=== PATIENT | male | born 1975 | race Caucasian/White ===

== ENCOUNTER 2021-08-21 06:15 | Inpatient (IN) ==
[2021-08-21] MEDS ORDERED: *HR* FentaNYL (PF) 1,000 MCG/20 ML VIAL ONE (06:25)
[2021-08-21] MEDS ORDERED: *HR* Phenylephrine 10 MG/ML VIAL ONE (06:25)
[2021-08-21] MEDS ORDERED: *HR* Rocuronium Bromide 50 MG/5 ML VIAL ONE ×2 (06:25→10:59)
[2021-08-21] MEDS ORDERED: *HR* Midazolam HCl 5 MG/5 ML VIAL IVP ONE (06:25)
[2021-08-21] MEDS ORDERED: *HR* Etomidate 20 MG/10 ML AMPUL IVP ONE (06:26)
[2021-08-21] MEDS ORDERED: Tranexamic Acid 1,000 MG/10 ML VIAL ONE (06:26)
[2021-08-21] MEDS ORDERED: Protamine Sulfate 250 MG/25 ML VIAL IVP ONE (06:26)
[2021-08-21] MEDS ORDERED: Calcium Gluconate 1,000 MG/10 ML VIAL ONE (06:26)
[2021-08-21] MEDS ORDERED: niCARdipine 40 MG/200 ML MLS IVC ONE (06:27)
[2021-08-21] MEDS ORDERED: *HR* DOBUTamine HCl 250 MG/20 ML VIAL ONE (06:28)
[2021-08-21] MEDS ORDERED: D5% in Water 250 ML ONE ×2 (06:28→11:15)
[2021-08-21] MEDS ORDERED: EPHEDrine 50 MG/ML VIAL ONE (06:45)
[2021-08-21] MEDS ORDERED: Chlorhexidine Rinse 15 ML MOUTHWASH MM ONE (06:53)
[2021-08-21] MEDS ORDERED: Aspirin 325 MG TABLET PO ONE (06:55)
[2021-08-21] MEDS ORDERED: Papaverine 60 MG/2 ML VIAL IVP ONE (07:02)
[2021-08-21] MEDS ORDERED: Vancomycin 1,000 MG VIAL ONE (07:02)
[2021-08-21] MEDS ORDERED: VANCOMYCIN IVPB ONE (07:17)
[2021-08-21] MEDS ORDERED: SODIUM CHLORIDE 0.9% IVPB ONE (07:17)
[2021-08-21] MEDS ORDERED: ceFAZolin 3,000 MG in 0.9 % Sodium Chloride 100 ML IVPB ONE (07:32)
[2021-08-21] MEDS ORDERED: Vancomycin 2,000 MG/520 ML IV.SOLN IVPB ONE (07:37)
[2021-08-21] MEDS ORDERED: Heparin 15,000 UNIT in 0.9 % Sodium Chloride 500 ML IV ONE (07:45)
[2021-08-21] MEDS ORDERED: Norepinephrine 4 MG in 0.9 % Sodium Chloride 250 ML IVC PRN ×2 (07:45→13:37)
[2021-08-21] MEDS ORDERED: CeFAZolin Syr 3,000MG/30 ML 3,000 MG/30 ML SYRINGE IVPB ONE (08:00)
[2021-08-21] MEDS ORDERED: del Nido Cardioplegia Solution PF ONE (08:00)
[2021-08-21] MEDS ORDERED: Buckersberg's Blood Cardioplegia PF SCH ×2 (08:00)
[2021-08-21] MEDS ORDERED: del Nido Cardioplegia Solution PF SCH (08:00)
[2021-08-21 09:27] LABS: ABG Base Excess -2 mEq/L (-2 to 3); ABG Chloride 107 mEq/L (98-107); ABG Glucose 203 mg/dL (60-95); ABG HCO3 24 mEq/L (21-27); ABG Ionized Calcium 1.16 mmol/L (1.15-1.35); ABG Oxygen Saturation 100 % (95-98); ABG PCO2 46 mmHg (35-45); ABG PH 7.32 pH Units (7.32-7.45); ABG PO2 215 mmHg (85-104); ABG TCO2 25 mEq/L (20-26)
[2021-08-21 09:48] LABS: ABG Base Excess -4 mEq/L (-2 to 3); ABG Chloride 106 mEq/L (98-107); ABG Glucose 239 mg/dL (60-95); ABG HCO3 24 mEq/L (21-27); ABG Ionized Calcium 1.17 mmol/L (1.15-1.35); ABG Oxygen Saturation 96 % (95-98); ABG PCO2 54 mmHg (35-45); ABG PH 7.25 pH Units (7.32-7.45); ABG PO2 100 mmHg (85-104); ABG TCO2 25 mEq/L (20-26)
[2021-08-21] MEDS ORDERED: NiCARdipine 2.5 MG/10 ML Syringe IVPB ONE (09:56)
[2021-08-21 10:20] LABS: ABG Base Excess -3 mEq/L (-2 to 3); ABG Chloride 103 mEq/L (98-107); ABG Glucose 213 mg/dL (60-95); ABG HCO3 23 mEq/L (21-27); ABG Ionized Calcium 1.01 mmol/L (1.15-1.35); ABG Oxygen Saturation 100 % (95-98); ABG PCO2 47 mmHg (35-45); ABG PH 7.31 pH Units (7.32-7.45); ABG PO2 488 mmHg (85-104); ABG TCO2 25 mEq/L (20-26)
[2021-08-21 10:49] LABS: ABG Base Excess -1 mEq/L (-2 to 3); ABG Chloride 103 mEq/L (98-107); ABG Glucose 244 mg/dL (60-95); ABG HCO3 24 mEq/L (21-27); ABG Ionized Calcium 1.05 mmol/L (1.15-1.35); ABG Oxygen Saturation 100 % (95-98); ABG PCO2 41 mmHg (35-45); ABG PH 7.38 pH Units (7.32-7.45); ABG PO2 447 mmHg (85-104); ABG TCO2 25 mEq/L (20-26)
[2021-08-21] MEDS ORDERED: EPINEPHrine 1 MG/ML VIAL ONE ×2 (11:12→11:28)
[2021-08-21] MEDS ORDERED: *HR* Vasopressin 20 UNIT/ML VIAL ONE ×2 (11:12→11:23)
[2021-08-21] MEDS ORDERED: methylPREDNISolone 125 MG/2 ML VIAL ONE (11:21)
[2021-08-21 11:26] LABS: ABG Base Excess -1 mEq/L (-2 to 3); ABG Chloride 103 mEq/L (98-107); ABG Glucose 230 mg/dL (60-95); ABG HCO3 24 mEq/L (21-27); ABG Ionized Calcium 0.98 mmol/L (1.15-1.35); ABG Oxygen Saturation 100 % (95-98); ABG PCO2 41 mmHg (35-45); ABG PH 7.37 pH Units (7.32-7.45); ABG PO2 467 mmHg (85-104); ABG TCO2 25 mEq/L (20-26)
[2021-08-21] MEDS ORDERED: Sodium Bicarbonate 50 MEQ/50 ML VIAL ONE ×2 (11:29→12:15)
[2021-08-21] MEDS ORDERED: Tranexamic Acid 1,000 MG/10 ML VIAL IR ONE (11:37)
[2021-08-21] MEDS ORDERED: Lidocaine 2% Syringe 100 MG/5 ML IVP ONE (11:37)
[2021-08-21] MEDS ORDERED: Mannitol 25% vial 12.5 GM/50 ML VIAL IVPB ONE (11:37)
[2021-08-21] MEDS ORDERED: Albumin Human 25% 25 GM/100 ML IV.SOLN IVPB ONE (11:37)
[2021-08-21] MEDS ORDERED: *HR* Phenylephrine 10 MG/ML VIAL IVC ONE (11:37)
[2021-08-21] MEDS ORDERED: *HR* Heparin 10,000 UNIT/10 ML VIAL IR ONE (11:37)
[2021-08-21] MEDS ORDERED: *HR* Magnesium Sulfate 2 GM/50 ML PIGGYBACK IVPB ONE (11:37)
[2021-08-21 11:39] LABS: ABG Base Excess -9 mEq/L (-2 to 3); ABG Chloride 106 mEq/L (98-107); ABG Glucose 335 mg/dL (60-95); ABG HCO3 19 mEq/L (21-27); ABG Oxygen Saturation 94 % (95-98); ABG PCO2 50 mmHg (35-45); ABG PO2 89 mmHg (85-104); ABG TCO2 21 mEq/L (20-26)
[2021-08-21 12:12] LABS: ABG Base Excess 1 mEq/L (-2 to 3); ABG Chloride 102 mEq/L (98-107); ABG Glucose 336 mg/dL (60-95); ABG HCO3 28 mEq/L (21-27); ABG Ionized Calcium 1.34 mmol/L (1.15-1.35); ABG Oxygen Saturation 98 % (95-98); ABG PCO2 51 mmHg (35-45); ABG PH 7.34 pH Units (7.32-7.45); ABG PO2 113 mmHg (85-104); ABG TCO2 29 mEq/L (20-26)
[2021-08-21] MEDS ORDERED: Albumin Human 5% 12.5 GM/250 ML IV.SOLN ONE ×4 (12:15→14:09)
[2021-08-21] MEDS ORDERED: Famotidine 20 MG/2 ML VIAL ONE (12:24)
[2021-08-21 13:18] LABS: ABG Base Excess -3 mEq/L (-2 to 3); ABG HCO3 24 mEq/L (21-27); ABG Oxygen Saturation 95 % (95-98); ABG PCO2 50 mmHg (35-45); ABG PH 7.29 pH Units (7.32-7.45); ABG PO2 87 mmHg (85-104); ABG TCO2 25 mEq/L (20-26); Blood Gas Modality AF; Blood Gas VT 750 cc
[2021-08-21] MEDS ORDERED: Albumin 25% 25gram/100mL 25 GM/100 ML IV.SOLN ONE (13:35)
[2021-08-21] MEDS ORDERED: Acetaminophen 325 MG TABLET PO PRN (13:37)
[2021-08-21] MEDS ORDERED: *HR* Promethazine 25 MG/ML VIAL IM PRN (13:37)
[2021-08-21] MEDS ORDERED: *HR* Dextrose 50 % in Water (Syg) 50 ML SYRINGE IVP PRN (13:37)
[2021-08-21] MEDS ORDERED: Insulin Regular, Human 100 UNIT/ML IV PRN (13:37)
[2021-08-21] MEDS ORDERED: Ondansetron 4 MG/2 ML VIAL IVP PRN (13:37)
[2021-08-21] MEDS ORDERED: Potassium Chloride 40 MEQ/200 ML BAG IVPB PRN (13:37)
[2021-08-21 13:50] LABS: Basophils # 0.1 K/mcL (0.0-0.2); Basophils % 0.3 %; Eosinophils # 0.1 K/mcL (0.0-0.6); Eosinophils % 0.3 %; Hematocrit 32.5 % (37.5-50.1); Hemoglobin 10.5 g/dL (12.9-16.9); Immature Granulocytes % 1.8 % (0-4); Lymphocytes # 1.6 K/mcL (0.6-4.6); Lymphocytes % 7.7 %; Mean Corpuscular HGB Conc 32.3 g/dL (31.6-35.5); Mean Corpuscular Hemoglobin 26.6 pg (28.0-33.3); Mean Corpuscular Volume 82.3 fL (83.0-100.0); Mean Platelet Volume 11.3 fL (9.4-12.4); Monocytes # 1.1 K/mcL (0.0-1.3); Monocytes % 5.2 %; Neutrophils # 17.8 K/mcL (1.6-8.9); Platelet Count 209 K/mcL (140-400); Red Blood Count 3.95 M/mcL (4.19-5.50); Red Cell Distribution Width 14.2 % (11.5-14.5); Segmented Neutrophils % 84.7 %
[2021-08-21 13:57] LABS: INR 1.4
[2021-08-21 14:07] LABS: BUN/Creatinine Ratio 16 (6-26); Blood Urea Nitrogen 14 mg/dL (6-20); Calcium 5.8 mg/dL (8.6-10.3); Carbon Dioxide 17 mEq/L (23-29); Chloride 118 mEq/L (98-107); Glucose 240 mg/dL (70-105); Magnesium 1.7 mg/dL (1.6-2.6); Osmolality,Calculated 324 (280-300); Potassium 3.3 mEq/L (3.5-5.1); Sodium 153 mEq/L (136-145); eGFR For African Americans > 60 (> 60); eGFR For Non-African Americans > 60 (> 60)
[2021-08-21 14:13] LABS: Activated Partial Thrombo Time > 360.0 Seconds (26.0-36.0)
[2021-08-21] MEDS: *HR* OxyCODONE/APAP 5/325 TABLET PO PRN ×3 (14:21→23:05)
[2021-08-21 15:38] LABS: ABG Base Excess -2 mEq/L (-2 to 3); ABG HCO3 24 mEq/L (21-27); ABG Oxygen Saturation 96 % (95-98); ABG PCO2 45 mmHg (35-45); ABG PH 7.33 pH Units (7.32-7.45); ABG PO2 89 mmHg (85-104); ABG TCO2 25 mEq/L (20-26); Blood Gas Modality CPAP/PS; Blood Gas Pressure Support 8 cm H2O
[2021-08-21] MEDS: *HR* FentaNYL (PF) 100 MCG/2 ML VIAL IVP PRN ×2 (16:50→19:27)
[2021-08-21] MEDS: CeFAZolin 2 GM/120 ML BAG IVPB SCH (16:51)
[2021-08-21 16:57] LABS: ABG Base Excess -3 mEq/L (-2 to 3); ABG HCO3 23 mEq/L (21-27); ABG Oxygen Saturation 94 % (95-98); ABG PCO2 41 mmHg (35-45); ABG PH 7.35 pH Units (7.32-7.45); ABG PO2 77 mmHg (85-104); ABG TCO2 24 mEq/L (20-26); Blood Gas FiO2 4.5 (1-15=lpm or21-100=%)
[2021-08-21] MEDS: Norepinephrine 4 MG/254 ML IV.SOLN IVC SCH ×2 (19:13→21:09)
[2021-08-21] MEDS: niCARdipine 20 MG/200 ML MLS IVC SCH ×2 (19:13→21:08)
[2021-08-21] MEDS: Calcium Gluconate 1gm/50mL 1 GM/50 ML BAG IVPB PRN ×2 (19:29→20:52)
[2021-08-21] MEDS: Chlorhexidine Rinse 15 ML MOUTHWASH MM SCH (20:37)
[2021-08-21] MEDS: Ketorolac 30 MG/ML VIAL IVP PRN (20:51)
[2021-08-22] MEDS: *HR* FentaNYL (PF) 100 MCG/2 ML VIAL IVP PRN ×3 (00:07→09:56)
[2021-08-22] MEDS: CeFAZolin 2 GM/120 ML BAG IVPB SCH (00:07)
[2021-08-22] MEDS: niCARdipine 20 MG/200 ML MLS IVC SCH ×4 (00:22→19:54)
[2021-08-22] MEDS: Ketorolac 30 MG/ML VIAL IVP PRN (03:06)
[2021-08-22] MEDS: *HR* OxyCODONE/APAP 5/325 TABLET PO PRN ×5 (04:02→19:45)
[2021-08-22 04:44] LABS: Basophils % 0.1 %; Hematocrit 34.7 % (37.5-50.1); Hemoglobin 11.3 g/dL (12.9-16.9); Immature Granulocytes % 0.8 % (0-4); Lymphocytes # 1.2 K/mcL (0.6-4.6); Lymphocytes % 8.7 %; Mean Corpuscular HGB Conc 32.6 g/dL (31.6-35.5); Mean Corpuscular Hemoglobin 26.4 pg (28.0-33.3); Mean Corpuscular Volume 81.1 fL (83.0-100.0); Mean Platelet Volume 11.2 fL (9.4-12.4); Monocytes # 0.9 K/mcL (0.0-1.3); Monocytes % 6.7 %; Neutrophils # 11.3 K/mcL (1.6-8.9); Platelet Count 165 K/mcL (140-400); Red Blood Count 4.28 M/mcL (4.19-5.50); Red Cell Distribution Width 14.6 % (11.5-14.5); Segmented Neutrophils % 83.7 %; White Blood Count 13.5 K/mcL (4.3-11.1)
[2021-08-22 04:54] LABS: INR 1.2; Prothrombin Time 12.9 Seconds (9.4-12.1)
[2021-08-22 04:57] LABS: Activated Partial Thrombo Time 29.3 Seconds (26.0-36.0)
[2021-08-22 05:10] LABS: BUN/Creatinine Ratio 16 (6-26); Blood Urea Nitrogen 22 mg/dL (6-20); Carbon Dioxide 23 mEq/L (23-29); Chloride 105 mEq/L (98-107); Glucose 161 mg/dL (70-105); Magnesium 2.3 mg/dL (1.6-2.6); Osmolality,Calculated 289 (280-300); Potassium 4.8 mEq/L (3.5-5.1); Sodium 136 mEq/L (136-145); eGFR For African Americans > 60 (> 60); eGFR For Non-African Americans 56 (> 60)
[2021-08-22] MEDS: Norepinephrine 4 MG/254 ML IV.SOLN IVC SCH (06:59)
[2021-08-22 07:50] LABS: ABG Base Excess -3 mEq/L (-2 to 3); ABG Chloride 104 mEq/L (98-107); ABG Glucose 353 mg/dL (60-95); ABG HCO3 23 mEq/L (21-27); ABG Oxygen Saturation 98 % (95-98); ABG PCO2 46 mmHg (35-45); ABG PH 7.31 pH Units (7.32-7.45); ABG PO2 119 mmHg (85-104); ABG TCO2 24 mEq/L (20-26)
[2021-08-22] MEDS ORDERED: Furosemide 40 MG/4 ML VIAL IVP ONE (08:43)
[2021-08-22] MEDS: Chlorhexidine Rinse 15 ML MOUTHWASH MM SCH (08:52)
[2021-08-22] MEDS ORDERED: Aspirin Enteric Coated 81 MG Tablet PO SCH (09:00)
[2021-08-22] MEDS ORDERED: Pantoprazole 40 MG VIAL IVP SCH (09:00)
[2021-08-22] MEDS ORDERED: Insulin Regular, Human 100 UNIT/ML IV PRN (17:08)
[2021-08-22] MEDS ORDERED: Calcium Gluconate 1gm/50mL 1 GM/50 ML BAG IVPB PRN (17:08)
[2021-08-22] MEDS ORDERED: Acetaminophen 325 MG TABLET PO PRN (17:08)
[2021-08-22] MEDS: Ondansetron 4 MG/2 ML VIAL IVP PRN (19:00)
[2021-08-22] MEDS: hydrOXYzine pamoate 25 MG CAPSULE PO SCH (19:45)
[2021-08-22] MEDS: levETIRAcetam 250 MG TABLET PO SCH (19:45)
[2021-08-23] MEDS: *HR* OxyCODONE/APAP 5/325 TABLET PO PRN ×5 (00:06→20:38)
[2021-08-23] MEDS: Ondansetron 4 MG/2 ML VIAL IVP PRN ×3 (01:18→12:41)
[2021-08-23 05:45] LABS: Basophils % 0.1 %; Hematocrit 34.2 % (37.5-50.1); Hemoglobin 11.2 g/dL (12.9-16.9); Immature Granulocytes % 1.1 % (0-4); Lymphocytes # 1.7 K/mcL (0.6-4.6); Lymphocytes % 8.1 %; Mean Corpuscular HGB Conc 32.7 g/dL (31.6-35.5); Mean Corpuscular Hemoglobin 26.8 pg (28.0-33.3); Mean Corpuscular Volume 81.8 fL (83.0-100.0); Monocytes # 1.2 K/mcL (0.0-1.3); Monocytes % 5.8 %; Neutrophils # 17.7 K/mcL (1.6-8.9); Nucleated Red Blood Cells 0.1 /100 WBC (0); Platelet Count 203 K/mcL (140-400); Red Blood Count 4.18 M/mcL (4.19-5.50); Red Cell Distribution Width 14.4 % (11.5-14.5); Segmented Neutrophils % 84.9 %
[2021-08-23 05:46] LABS: White Blood Count 20.9 K/mcL (4.3-11.1)
[2021-08-23] MEDS: niCARdipine 20 MG/200 ML MLS IVC SCH ×6 (07:50→20:38)
[2021-08-23] MEDS: levETIRAcetam 250 MG TABLET PO SCH ×2 (08:07→20:38)
[2021-08-23] MEDS: hydrOXYzine pamoate 25 MG CAPSULE PO SCH ×3 (08:07→20:38)
[2021-08-23] MEDS: Aspirin Enteric Coated 81 MG Tablet PO SCH (08:07)
[2021-08-23] MEDS: EPA PO SCH (08:08)
[2021-08-23] MEDS: OMEGA PO SCH (08:08)
[2021-08-23] MEDS: DHA PO SCH (08:08)
[2021-08-23] MEDS: FISH OIL PO SCH (08:08)
[2021-08-23 11:56] LABS: BUN/Creatinine Ratio 22 (6-26); Blood Urea Nitrogen 30 mg/dL (6-20); Carbon Dioxide 23 mEq/L (23-29); Chloride 93 mEq/L (98-107); Glucose 382 mg/dL (70-105); Osmolality,Calculated 286 (280-300); Potassium 4.7 mEq/L (3.5-5.1); Sodium 127 mEq/L (136-145); eGFR For African Americans > 60 (> 60); eGFR For Non-African Americans 57 (> 60)
[2021-08-23] MEDS ORDERED: Prochlorperazine 10 MG/2 ML VIAL IVP PRN (14:18)
[2021-08-23] MEDS ORDERED: Dextrose Gel 15 GM/37.5 ML TUBE PO PRN ×2 (15:41)
[2021-08-23] MEDS ORDERED: *HR* Dextrose 50 % in Water (Syg) 50 ML SYRINGE IVP PRN (15:41)
[2021-08-23] MEDS ORDERED: D5% in Water 1,000 ML IVC PRN (15:41)
[2021-08-23] MEDS: Insulin LISPRO 300 UNITS/3 ML VIAL SUBQ SCH (17:48)
[2021-08-23] MEDS: Cefuroxime PO 500 MG TABLET PO SCH (18:22)
[2021-08-23] MEDS ORDERED: Insulin DETEMIR 100 UNIT/ML X5UNITS SUBQ SCH (21:00)
[2021-08-23] MEDS ORDERED: Insulin LISPRO 300 UNITS/3 ML VIAL SUBQ SCH (21:00)
[2021-08-24] MEDS: niCARdipine 20 MG/200 ML MLS IVC SCH ×6 (03:25→20:54)
[2021-08-24 04:22] LABS: Basophils # 0.1 K/mcL (0.0-0.2); Basophils % 0.3 %; Eosinophils % 0.1 %; Hematocrit 32.5 % (37.5-50.1); Hemoglobin 10.8 g/dL (12.9-16.9); Immature Granulocytes % 1.4 % (0-4); Lymphocytes # 1.4 K/mcL (0.6-4.6); Mean Corpuscular HGB Conc 33.2 g/dL (31.6-35.5); Mean Corpuscular Hemoglobin 27.1 pg (28.0-33.3); Mean Corpuscular Volume 81.5 fL (83.0-100.0); Mean Platelet Volume 11.2 fL (9.4-12.4); Monocytes % 5.8 %; Neutrophils # 14.9 K/mcL (1.6-8.9); Nucleated Red Blood Cells 0.2 /100 WBC (0); Platelet Count 232 K/mcL (140-400); Red Blood Count 3.99 M/mcL (4.19-5.50); Red Cell Distribution Width 14.3 % (11.5-14.5); Segmented Neutrophils % 84.4 %; White Blood Count 17.6 K/mcL (4.3-11.1)
[2021-08-24 04:30] LABS: BUN/Creatinine Ratio 25 (6-26); Blood Urea Nitrogen 29 mg/dL (6-20); Calcium 9.3 mg/dL (8.6-10.3); Carbon Dioxide 26 mEq/L (23-29); Chloride 93 mEq/L (98-107); Glucose 320 mg/dL (70-105); Magnesium 2.4 mg/dL (1.6-2.6); Osmolality,Calculated 286 (280-300); Phosphorous 2.5 mg/dL (2.7-4.5); Potassium 4.5 mEq/L (3.5-5.1); Sodium 129 mEq/L (136-145); eGFR For African Americans > 60 (> 60); eGFR For Non-African Americans > 60 (> 60)
[2021-08-24] MEDS: Cefuroxime PO 500 MG TABLET PO SCH ×2 (05:14→17:17)
[2021-08-24] MEDS: *HR* OxyCODONE/APAP 5/325 TABLET PO PRN ×4 (05:14→21:11)
[2021-08-24] MEDS: levETIRAcetam 250 MG TABLET PO SCH ×2 (08:57→21:10)
[2021-08-24] MEDS: Aspirin Enteric Coated 81 MG Tablet PO SCH (08:57)
[2021-08-24] MEDS: hydrOXYzine pamoate 25 MG CAPSULE PO SCH ×3 (08:57→21:11)
[2021-08-24] MEDS: EPA PO SCH (08:59)
[2021-08-24] MEDS: DHA PO SCH (08:59)
[2021-08-24] MEDS: OMEGA PO SCH (08:59)
[2021-08-24] MEDS: Insulin LISPRO 300 UNITS/3 ML VIAL SUBQ SCH ×3 (08:59→17:20)
[2021-08-24] MEDS: FISH OIL PO SCH (08:59)
[2021-08-24] MEDS: Ondansetron 4 MG/2 ML VIAL IVP PRN (11:21)
[2021-08-24] MEDS: Sennosides 8.6 MG TABLET PO SCH (14:08)
[2021-08-24] MEDS: *HR* Heparin 5,000 UNIT/ML VIAL SQ SCH ×2 (14:08→21:10)
[2021-08-24] MEDS ORDERED: Insulin DETEMIR 100 UNIT/ML X5UNITS SUBQ SCH (21:00)
[2021-08-25] MEDS: niCARdipine 20 MG/200 ML MLS IVC SCH ×7 (00:46→21:14)
[2021-08-25] MEDS: Norepinephrine 4 MG/254 ML IV.SOLN IVC SCH (00:47)
[2021-08-25 02:52] LABS: Hematocrit 34.2 % (37.5-50.1); Hemoglobin 11.1 g/dL (12.9-16.9); Mean Corpuscular HGB Conc 32.5 g/dL (31.6-35.5); Mean Corpuscular Hemoglobin 26.3 pg (28.0-33.3); Mean Platelet Volume 10.9 fL (9.4-12.4); Platelet Count 288 K/mcL (140-400); Red Blood Count 4.22 M/mcL (4.19-5.50); Red Cell Distribution Width 14.4 % (11.5-14.5); White Blood Count 13.8 K/mcL (4.3-11.1)
[2021-08-25] MEDS: *HR* Heparin 5,000 UNIT/ML VIAL SQ SCH ×3 (05:50→20:24)
[2021-08-25] MEDS: Cefuroxime PO 500 MG TABLET PO SCH ×2 (05:50→17:13)
[2021-08-25] MEDS: *HR* OxyCODONE/APAP 5/325 TABLET PO PRN ×4 (05:50→20:25)
[2021-08-25] MEDS: Sennosides 8.6 MG TABLET PO SCH (07:25)
[2021-08-25] MEDS: DHA PO SCH (07:25)
[2021-08-25] MEDS: FISH OIL PO SCH (07:25)
[2021-08-25] MEDS: hydrOXYzine pamoate 25 MG CAPSULE PO SCH ×3 (07:25→20:25)
[2021-08-25] MEDS: OMEGA PO SCH (07:25)
[2021-08-25] MEDS: levETIRAcetam 250 MG TABLET PO SCH ×2 (07:25→20:25)
[2021-08-25] MEDS: EPA PO SCH (07:25)
[2021-08-25] MEDS: Aspirin Enteric Coated 81 MG Tablet PO SCH (07:25)
[2021-08-25] MEDS: Insulin LISPRO 300 UNITS/3 ML VIAL SUBQ SCH ×4 (08:01→21:13)
[2021-08-25] MEDS: Metoprolol XL (24 HR) Succ 25 MG TAB.ER.24H PO SCH (10:23)
[2021-08-25] MEDS: Sennosides/Docusate Sodium TABLET PO SCH ×2 (10:23→20:26)
[2021-08-25] MEDS ORDERED: Insulin DETEMIR 100 UNIT/ML X5UNITS SUBQ SCH (21:00)
[2021-08-26 04:11] LABS: Hematocrit 35.3 % (37.5-50.1); Hemoglobin 11.4 g/dL (12.9-16.9); Mean Corpuscular HGB Conc 32.3 g/dL (31.6-35.5); Mean Corpuscular Hemoglobin 26.1 pg (28.0-33.3); Mean Corpuscular Volume 80.8 fL (83.0-100.0); Mean Platelet Volume 10.4 fL (9.4-12.4); Platelet Count 315 K/mcL (140-400); Red Blood Count 4.37 M/mcL (4.19-5.50); Red Cell Distribution Width 14.3 % (11.5-14.5); White Blood Count 11.9 K/mcL (4.3-11.1)
[2021-08-26] MEDS: *HR* OxyCODONE/APAP 5/325 TABLET PO PRN ×4 (04:23→23:28)
[2021-08-26] MEDS: niCARdipine 20 MG/200 ML MLS IVC SCH ×4 (04:24→15:12)
[2021-08-26 04:29] LABS: BUN/Creatinine Ratio 32 (6-26); Blood Urea Nitrogen 29 mg/dL (6-20); Calcium 9.6 mg/dL (8.6-10.3); Carbon Dioxide 29 mEq/L (23-29); Chloride 91 mEq/L (98-107); Glucose 291 mg/dL (70-105); Magnesium 1.9 mg/dL (1.6-2.6); Osmolality,Calculated 287 (280-300); Potassium 3.8 mEq/L (3.5-5.1); Sodium 130 mEq/L (136-145); eGFR For African Americans > 60 (> 60); eGFR For Non-African Americans > 60 (> 60)
[2021-08-26] MEDS: *HR* Heparin 5,000 UNIT/ML VIAL SQ SCH ×3 (05:55→21:15)
[2021-08-26] MEDS: Cefuroxime PO 500 MG TABLET PO SCH ×2 (05:55→17:43)
[2021-08-26] MEDS: Insulin LISPRO 300 UNITS/3 ML VIAL SUBQ SCH ×4 (09:26→21:14)
[2021-08-26] MEDS: Aspirin Enteric Coated 81 MG Tablet PO SCH (09:27)
[2021-08-26] MEDS: Sennosides/Docusate Sodium TABLET PO SCH ×2 (09:27→21:10)
[2021-08-26] MEDS: levETIRAcetam 250 MG TABLET PO SCH ×2 (09:27→21:10)
[2021-08-26] MEDS: Metoprolol XL (24 HR) Succ 25 MG TAB.ER.24H PO SCH (09:27)
[2021-08-26] MEDS: hydrOXYzine pamoate 25 MG CAPSULE PO SCH ×3 (09:27→21:10)
[2021-08-26] MEDS: DHA PO SCH (09:28)
[2021-08-26] MEDS: FISH OIL PO SCH (09:28)
[2021-08-26] MEDS: EPA PO SCH (09:28)
[2021-08-26] MEDS: OMEGA PO SCH (09:28)
[2021-08-26] MEDS: Ondansetron 4 MG/2 ML VIAL IVP PRN (17:46)
[2021-08-26] MEDS: Metoprolol XL (24 HR) Succ 50 MG TAB.ER.24H PO SCH (21:10)
[2021-08-26] MEDS: Insulin DETEMIR 100 UNIT/ML X5UNITS SUBQ SCH (21:16)
[2021-08-27 02:10] LABS: Basophils # 0.1 K/mcL (0.0-0.2); Basophils % 0.9 %; Eosinophils # 0.2 K/mcL (0.0-0.6); Eosinophils % 1.9 %; Hematocrit 35.6 % (37.5-50.1); Hemoglobin 12.1 g/dL (12.9-16.9); Immature Granulocytes % 4.1 % (0-4); Lymphocytes # 2.1 K/mcL (0.6-4.6); Lymphocytes % 16.3 %; Mean Corpuscular Hemoglobin 27.1 pg (28.0-33.3); Mean Corpuscular Volume 79.6 fL (83.0-100.0); Monocytes # 0.9 K/mcL (0.0-1.3); Monocytes % 7.3 %; Neutrophils # 8.9 K/mcL (1.6-8.9); Nucleated Red Blood Cells 0.4 /100 WBC (0); Platelet Count 322 K/mcL (140-400); Red Blood Count 4.47 M/mcL (4.19-5.50); Red Cell Distribution Width 14.2 % (11.5-14.5); Segmented Neutrophils % 69.5 %; White Blood Count 12.8 K/mcL (4.3-11.1)
[2021-08-27 02:29] LABS: BUN/Creatinine Ratio 25 (6-26); Blood Urea Nitrogen 26 mg/dL (6-20); Calcium 10.4 mg/dL (8.6-10.3); Carbon Dioxide 31 mEq/L (23-29); Chloride 90 mEq/L (98-107); Glucose 290 mg/dL (70-105); Osmolality,Calculated 287 (280-300); Potassium 4.2 mEq/L (3.5-5.1); Sodium 131 mEq/L (136-145); eGFR For African Americans > 60 (> 60); eGFR For Non-African Americans > 60 (> 60)
[2021-08-27] MEDS: Cefuroxime PO 500 MG TABLET PO SCH ×2 (06:45→17:11)
[2021-08-27] MEDS: *HR* Heparin 5,000 UNIT/ML VIAL SQ SCH ×3 (06:45→21:45)
[2021-08-27] MEDS: niCARdipine 20 MG/200 ML MLS IVC SCH ×6 (07:20→17:11)
[2021-08-27] MEDS: Sennosides/Docusate Sodium TABLET PO SCH ×2 (08:03→21:46)
[2021-08-27] MEDS: hydrOXYzine pamoate 25 MG CAPSULE PO SCH ×3 (08:03→21:45)
[2021-08-27] MEDS: Aspirin Enteric Coated 81 MG Tablet PO SCH (08:03)
[2021-08-27] MEDS: levETIRAcetam 250 MG TABLET PO SCH (08:03)
[2021-08-27] MEDS: Insulin LISPRO 300 UNITS/3 ML VIAL SUBQ SCH ×7 (08:04→21:39)
[2021-08-27] MEDS: *HR* OxyCODONE/APAP 5/325 TABLET PO PRN (08:14)
[2021-08-27] MEDS: Ondansetron 4 MG/2 ML VIAL IVP PRN (08:14)
[2021-08-27] MEDS: FISH OIL PO SCH (09:23)
[2021-08-27] MEDS: EPA PO SCH (09:23)
[2021-08-27] MEDS: DHA PO SCH (09:23)
[2021-08-27] MEDS: OMEGA PO SCH (09:23)
[2021-08-27] MEDS ORDERED: Ketorolac 30 MG/ML VIAL IM PRN (13:26)
[2021-08-27] MEDS ORDERED: D5% in 0.45% NACL w KCl 20 MEQ/1,000 ML MLS IVC SCH (14:15)
[2021-08-27] MEDS: 0.9 % Sodium Chloride 1,000 ML IVC SCH (16:54)
[2021-08-27] MEDS: Ketorolac 30 MG/ML VIAL IVP SCH (16:54)
[2021-08-27] MEDS: Insulin DETEMIR 100 UNIT/ML X5UNITS SUBQ SCH (21:44)
[2021-08-27] MEDS: *HR* Metoprolol 5 MG/5 ML VIAL IVP SCH (23:59)
[2021-08-28] MEDS ORDERED: cefOXitin 1,000 MG in Water for inj. (sterile) 10 ML IVP SCH
[2021-08-28] MEDS: 0.9 % Sodium Chloride 1,000 ML IVC SCH ×3 (01:24→17:36)
[2021-08-28] MEDS: cefOXitin 1,000 MG in 0.9 % Sodium Chloride 10 ML IVP SCH ×3 (01:59→17:36)
[2021-08-28 06:24] LABS: Basophils % 0.4 %; Eosinophils # 0.1 K/mcL (0.0-0.6); Eosinophils % 1.3 %; Hematocrit 33.2 % (37.5-50.1); Immature Granulocytes % 2.2 % (0-4); Lymphocytes # 1.6 K/mcL (0.6-4.6); Lymphocytes % 14.5 %; Mean Corpuscular HGB Conc 33.1 g/dL (31.6-35.5); Mean Corpuscular Hemoglobin 26.7 pg (28.0-33.3); Mean Corpuscular Volume 80.6 fL (83.0-100.0); Mean Platelet Volume 10.6 fL (9.4-12.4); Monocytes # 0.6 K/mcL (0.0-1.3); Monocytes % 5.9 %; Neutrophils # 8.2 K/mcL (1.6-8.9); Nucleated Red Blood Cells 0.3 /100 WBC (0); Platelet Count 321 K/mcL (140-400); Red Blood Count 4.12 M/mcL (4.19-5.50); Red Cell Distribution Width 14.2 % (11.5-14.5); Segmented Neutrophils % 75.7 %; White Blood Count 10.9 K/mcL (4.3-11.1)
[2021-08-28] MEDS: Ketorolac 30 MG/ML VIAL IVP SCH ×5 (06:39→23:57)
[2021-08-28] MEDS: *HR* Metoprolol 5 MG/5 ML VIAL IVP SCH ×4 (06:40→23:56)
[2021-08-28] MEDS: *HR* Heparin 5,000 UNIT/ML VIAL SQ SCH ×3 (06:40→22:21)
[2021-08-28 06:59] LABS: BUN/Creatinine Ratio 31 (6-26); Blood Urea Nitrogen 33 mg/dL (6-20); Calcium 9.7 mg/dL (8.6-10.3); Carbon Dioxide 31 mEq/L (23-29); Chloride 90 mEq/L (98-107); Glucose 225 mg/dL (70-105); Magnesium 2.1 mg/dL (1.6-2.6); Osmolality,Calculated 286 (280-300); Phosphorous 5.9 mg/dL (2.7-4.5); Potassium 4.2 mEq/L (3.5-5.1); Sodium 131 mEq/L (136-145); eGFR For African Americans > 60 (> 60); eGFR For Non-African Americans > 60 (> 60)
[2021-08-28] MEDS: niCARdipine 20 MG/200 ML MLS IVC SCH ×4 (07:28→07:43)
[2021-08-28] MEDS: hydrOXYzine pamoate 25 MG CAPSULE PO SCH ×4 (07:29→23:54)
[2021-08-28] MEDS: Sennosides/Docusate Sodium TABLET PO SCH ×3 (07:29→23:54)
[2021-08-28] MEDS: DHA PO SCH (07:31)
[2021-08-28] MEDS: FISH OIL PO SCH (07:31)
[2021-08-28] MEDS: EPA PO SCH (07:31)
[2021-08-28] MEDS: OMEGA PO SCH (07:31)
[2021-08-28] MEDS: Insulin LISPRO 300 UNITS/3 ML VIAL SUBQ SCH ×5 (07:46→17:37)
[2021-08-28] MEDS: Insulin DETEMIR 100 UNIT/ML X5UNITS SUBQ SCH (22:23)
[2021-08-28] MEDS: levETIRAcetam 250 MG TABLET PO SCH (23:54)
[2021-08-28] MEDS: Metoprolol XL (24 HR) Succ 50 MG TAB.ER.24H PO SCH (23:54)
[2021-08-29] MEDS: 0.9 % Sodium Chloride 1,000 ML IVC SCH
[2021-08-29] MEDS: Insulin LISPRO 300 UNITS/3 ML VIAL SUBQ SCH ×4 (00:43→16:50)
[2021-08-29] MEDS: cefOXitin 1,000 MG in 0.9 % Sodium Chloride 10 ML IVP SCH ×2 (03:20→09:12)
[2021-08-29 04:05] LABS: BUN/Creatinine Ratio 35 (6-26); Blood Urea Nitrogen 36 mg/dL (6-20); Calcium 8.8 mg/dL (8.6-10.3); Carbon Dioxide 25 mEq/L (23-29); Chloride 98 mEq/L (98-107); Glucose 198 mg/dL (70-105); Magnesium 2.3 mg/dL (1.6-2.6); Osmolality,Calculated 296 (280-300); Phosphorous 4.6 mg/dL (2.7-4.5); Potassium 4.9 mEq/L (3.5-5.1); Sodium 136 mEq/L (136-145); eGFR For African Americans > 60 (> 60); eGFR For Non-African Americans > 60 (> 60)
[2021-08-29] MEDS: Cefuroxime PO 500 MG TABLET PO SCH ×2 (05:45→18:48)
[2021-08-29] MEDS: *HR* Metoprolol 5 MG/5 ML VIAL IVP SCH ×2 (05:58→11:48)
[2021-08-29] MEDS: *HR* Heparin 5,000 UNIT/ML VIAL SQ SCH ×3 (05:59→20:20)
[2021-08-29] MEDS: Ketorolac 30 MG/ML VIAL IVP SCH ×3 (05:59→18:45)
[2021-08-29] MEDS: Aspirin Enteric Coated 81 MG Tablet PO SCH (07:52)
[2021-08-29] MEDS: DHA PO SCH (07:53)
[2021-08-29] MEDS: hydrOXYzine pamoate 25 MG CAPSULE PO SCH ×3 (07:53→20:04)
[2021-08-29] MEDS: Sennosides/Docusate Sodium TABLET PO SCH ×2 (07:53→20:04)
[2021-08-29] MEDS: EPA PO SCH (07:53)
[2021-08-29] MEDS: OMEGA PO SCH (07:53)
[2021-08-29] MEDS: FISH OIL PO SCH (07:53)
[2021-08-29] MEDS: levETIRAcetam 250 MG TABLET PO SCH ×2 (07:53→20:03)
[2021-08-29] MEDS: Metoprolol XL (24 HR) Succ 50 MG TAB.ER.24H PO SCH (20:04)
[2021-08-29] MEDS: Insulin DETEMIR 100 UNIT/ML X5UNITS SUBQ SCH (20:19)
[2021-08-29] MEDS ORDERED: Insulin LISPRO 300 UNITS/3 ML VIAL SUBQ SCH (21:00)
[2021-08-30] MEDS ORDERED: *HR* HYDROcodone/Acet 5/325 mg TABLET PO ONE (00:38)
[2021-08-30] MEDS: Cefuroxime PO 500 MG TABLET PO SCH (05:46)
[2021-08-30] MEDS: *HR* Heparin 5,000 UNIT/ML VIAL SQ SCH (05:46)
[2021-08-30 05:56] LABS: BUN/Creatinine Ratio 30 (6-26); Blood Urea Nitrogen 33 mg/dL (6-20); Calcium 8.4 mg/dL (8.6-10.3); Carbon Dioxide 24 mEq/L (23-29); Chloride 98 mEq/L (98-107); Glucose 228 mg/dL (70-105); Magnesium 2.1 mg/dL (1.6-2.6); Osmolality,Calculated 286 (280-300); Phosphorous 4.5 mg/dL (2.7-4.5); Potassium 3.8 mEq/L (3.5-5.1); Sodium 131 mEq/L (136-145); eGFR For African Americans > 60 (> 60); eGFR For Non-African Americans > 60 (> 60)
[2021-08-30 07:38] VITALS: BP 120/57; PULSE 75; TEMP 97.9; O2SAT 96
[2021-08-30] MEDS ORDERED: Insulin LISPRO 300 UNITS/3 ML VIAL SUBQ SCH (08:00)
[2021-08-30] MEDS: levETIRAcetam 250 MG TABLET PO SCH (09:24)
[2021-08-30] MEDS: Sennosides/Docusate Sodium TABLET PO SCH (09:24)
[2021-08-30] MEDS: Aspirin Enteric Coated 81 MG Tablet PO SCH (09:24)
[2021-08-30] MEDS: hydrOXYzine pamoate 25 MG CAPSULE PO SCH (09:24)
== END 2021-08-30 12:10 | disposition home or self-care (01) | DRG 219 ==
LOC: SAMDAY 06:15 → ICNU 11:54 → SUATTDRO 11:54 → 2NNU 08-22 20:52
PROVIDERS: ADMIT Thoracic Surgery (Cardiothoracic Vascular Surgery); ATTEND Internal Medicine